=== PATIENT | male | born 1975 | race Hispanic/Latino ===

== ENCOUNTER 2024-03-19 12:46 | Emergency (ER) | payer MEDICAID ==
[~2024-03-19] VITALS: Ht 180.3 cm; Wt 81.3 kg
[2024-03-19] MEDS ORDERED: OMEPRAZOLE20 MG PO (12:53)
[2024-03-19 13:14] LABS: BASOPHILS 0.6 % (0-2); EOSINOPHILS 2.4 % (0-6); HEMATOCRIT 39.3 % (35.0-50.0); HEMOGLOBIN 13.2 g/dL (12.0-18.0); LYMPHOCYTES 32.4 % (24-44); MCH 30.2 (27-36); MCHC 33.5 g/dl (30-36); MCV 90.2 fl (81-99); MONOCYTES 7.5 % (0-12); NEUTROPHILS 57.1 % (39-80); PLATELET COUNT 229 K/uL (140-440); RBC 4.35 M/ul (4.3-5.7); RDW 13.1 (10.5-15.0)
[2024-03-19] MEDS ORDERED: SODIUM CHLORIDE 0.9% 1,000 ML IV ONE (13:15)
[2024-03-19] MEDS ORDERED: ondansetron HCL 4 MG/2 ML VIAL IV ONE (13:15)
[2024-03-19] MEDS ORDERED: PANTOPRAZOLE SODIUM 40 MG/10 ML VIAL IV ONE (13:15)
[2024-03-19 13:33] LABS: ALBUMIN 3.8 g/dL (3.4-5.0); ALBUMIN/GLOBULIN RATIO 1.15 (1.1-2.4); ANION GAP 13.3 (7-21); BILIRUBIN, TOTAL 0.3 ng/dL (0.2-1.0); BUN/CREATININE RATIO 30.95 (6.0-28.6); CALCIUM 9.1 mg/dL (8.5-10.1); CREATININE, SERUM 0.84 mg/dL (0.70-1.30); POTASSIUM 4.3 mmol/L (3.5-5.1); PROTEIN, TOTAL 7.1 g/dL (6.4-8.2)
[2024-03-19 13:41] LABS: INR 0.98 (0.80-1.30); PROTIME 12.6 Sec (11.2-14.2)
[2024-03-19 13:43] LABS: PARTIAL THROMBOPLASTIN TIME 28.1 Sec (22.9-41.3)
[2024-03-19 13:57] LABS: BILIRUBIN, URINE NEGATIVE (negative); BLOOD/HGB, URINE NEGATIVE (Negative); KETONE, URINE NEGATIVE (Negative); LEUK ESTERASE, URINE NEGATIVE (negative); NITRITE, URINE NEGATIVE (negative)
[2024-03-19] MEDS ORDERED: PROTONIX40 MG PO (14:36)
[2024-03-19 14:53] VITALS: BP 128/82
--- NOTE | 2024-03-21 09:01 | EKG ---
[facility] [address] [place], [place] [address] Signed Normal sinus rhythm Normal ECG No previous ECGs available Confirmed by Wilian Jasso MD ([id number]) on 03/21/2024 9:01:27 AM Electronically Signed By: WILIAN JASSO 03/21/24 0901 PATIENT NAME: ROCIO IGLESIAS Electrocardiogram DATE OF : 73 PHYSICIAN: WILIAN JASSO REPORT #: [id number] REPORT IS CONFIDENTIAL AND NOT TO BE RELEASED WITHOUT AUTHORIZATION
== END 2024-03-19 14:54 | disposition home or self-care (01) ==
LOC: ED 12:46
PROVIDERS: Emergency Medicine
DX: K29.71 Gastritis, unspecified, with bleeding (principal); T39.315A Adverse effect of propionic acid derivatives, initial encounter
CPT/HCPCS: 36415; 74177; 80053; 81003; 83690; 84484; 85025; 85610; 85730; 93005; 93010; 96361; 96375; 99284-25; J2405; J2470; J7030; Q9967